=== PATIENT | male | born 1935 | race Caucasian/White ===

== ENCOUNTER → 2017-09-03 | Outpatient (CLI) | payer MEDICARE, OTHER ==
[~2017-09-03] MED LIST: ATOR40TA78 PO; AZIT500T5 PO; CEFD300C37 PO; LISI-167 PO; METF500T4 PO; OMEP40CA6 PO
== END | disposition home or self-care (01) ==
LOC: CFH 11:06
PROVIDERS: ATTEND Internal Medicine
DX: R06.02 Shortness of breath (principal)
CPT/HCPCS: 71046